=== PATIENT | female | born 1985 | race Caucasian/White ===

== ENCOUNTER 2017-07-18 20:25 | Emergency (ER) | payer OTHER ==
[~2017-07-18] VITALS: Ht 170.2 cm; Wt 73.4 kg
[2017-07-18 20:34] VITALS: BP 139/94
[2017-07-18 21:06] LABS: AMPHETAMINE NEGATIVE (500 ng/mL); BARBITURATES NEGATIVE (200 ng/mL); BENZODIAZEPINES NEGATIVE (150 ng/mL); COCAINE NEGATIVE (150 ng/mL); INTERNAL CONTROLS VALID? YES; METHADONE NEGATIVE (200 ng/mL); METHAMPHETAMINE NEGATIVE (500 ng/mL); OPIATES (MORPHINE) NEGATIVE (100 ng/mL); OXYCODONE NEGATIVE (100 ng/mL); PHENCYCLIDINE NEGATIVE (25 ng/mL); PROPOXYPHENE NEGATIVE (300 ng/mL); THC CANNABINOIDS NEGATIVE (50 ng/mL); TRICYCLIC ANTIDEPRESSANTS NEGATIVE (300 ng/mL)
[2017-07-18 21:11] LABS: SERUM ETHYL ALCOHOL 97 mg/dL
[2017-07-18 21:19] LABS: QUANTITATIVE HCG < 4.0 MIU/ML
== END 2017-07-18 23:16 | disposition home or self-care (01) ==
LOC: EME 20:25 → EDBD 20:25 → EME 23:16
PROVIDERS: Emergency Medicine
DX: F10.129 Alcohol abuse with intoxication, unspecified (principal); Z04.1 Encounter for examination and observation following transport accident; F17.200 Nicotine dependence, unspecified, uncomplicated
CPT/HCPCS: 70450; 84702; 99281; 99284; G0480; J2310